=== PATIENT | male | born 1940 | race Two or more races ===

== ENCOUNTER 2018-02-27 18:59 | Emergency (ER) | payer SELFPAY ==
[~2018-02-27] VITALS: Ht 182.9 cm; Wt 85.7 kg
[2018-02-27 19:25] VITALS: BP 145/69
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
== END 2018-02-27 20:35 | disposition home or self-care (01) ==
LOC: ER 19:07
DX: S00.83XA Contusion of other part of head, initial encounter (principal); S00.03XA Contusion of scalp, initial encounter; I10 Essential (primary) hypertension; Z85.6 Personal history of leukemia; Y04.0XXA Assault by unarmed brawl or fight, initial encounter; Y93.89 Activity, other specified; Y92.89 Other specified places as the place of occurrence of the external cause; Y99.8 Other external cause status
CPT/HCPCS: 70450; 70486; 99284; A4606; Z7610